=== PATIENT | female | born 1985 | race African-American/Black ===

== ENCOUNTER 2020-10-15 01:53 | Inpatient (IN) | payer BC, OTHER ==
[2020-10-15] MEDS ORDERED: DEXTROSE 5%-LACTATED RINGERS 1,000 ML IV SCH ×2 (02:00→07:00)
[2020-10-15] MEDS ORDERED: BUTORPHANOL TARTRATE 1 MG/ML VIAL IVPB ONE (02:00)
[2020-10-15] MEDS ORDERED: PROMETHAZINE HCL 25 MG/1 ML VIAL IVPB ONE (02:00)
[2020-10-15 03:34] LABS: BASO % 0.4 % (0-2.0); EOS % 2.3 % (0-4.5); HEMATOCRIT 34.6 % (32.4-45.2); HEMOGLOBIN 11.8 GM/dL (10.7-15.3); LYMPH % 29.5 % (8-40); MCH 28.7 pg (25.7-33.7); MEAN CELL VOLUME 84.2 fl (80-96); MEAN PLT VOLUME 8.2 fl (7.5-11.1); MONO % 7.7 % (3.8-10.2); NEUT % 60.1 % (42.8-82.8); PLATELET COUNT 283 10^3/uL (134-434); RBC 4.11 M/mm3 (3.60-5.2); RDW 13.9 % (11.6-15.6); WHITE BLOOD COUNT 8.1 K/mm3 (4.0-10.0)
[2020-10-15 03:41] LABS: INR 0.94 (0.83-1.09); PROTHROMBIN TIME (PATIENT) 11.4 SEC (9.7-13.0)
[2020-10-15 03:43] VITALS: BMI 42.1
[2020-10-15 03:43] LABS: ACTIVATED PTT 26.2 SECONDS (25.2-36.5)
[2020-10-15 03:57] LABS: CALCIUM 8.5 mg/dL (8.5-10.1)
[2020-10-15 03:59] LABS: BLOOD UREA NITROGEN 8.9 mg/dL (7-18)
[2020-10-15] MEDS ORDERED: PROMETHAZINE HCL 25 MG/1 ML VIAL ONE (04:00)
[2020-10-15] MEDS ORDERED: BUTORPHANOL TARTRATE 2 MG/ML VIAL ONE (04:00)
[2020-10-15 04:02] LABS: CREATININE 0.6 mg/dL (0.55-1.3)
[2020-10-15 04:56] LABS: HIV INTERPRETATION NEGATIVE (NEGATIVE)
[2020-10-15] MEDS ORDERED: LABETALOL HCL 100 MG TABLET (FP) ONE (05:32)
[2020-10-15] MEDS ORDERED: OXYTOCIN 20 UNITS in 0.9% NS 20 UNIT/1,000 ML INFUS.BAG IV ONE ×2 (07:03→09:16)
[2020-10-15] MEDS: OXYTOCIN 20 UNITS in 0.9% NS 20 UNITS/1,000 ML INFUS.BAG IV SCH ×2 (07:22→09:20)
[2020-10-15] MEDS ORDERED: BISACODYL 10 MG SUPP.RECT RC PRN (07:39)
[2020-10-15] MEDS ORDERED: oxyCODONE HCL 5 MG TABLET PO PRN (07:39)
[2020-10-15] MEDS ORDERED: BENZOCAINE 28 GM HEMORRHOIDAL OINTMENT TP PRN (07:39)
[2020-10-15] MEDS ORDERED: METHYLERGONOVINE MALEATE 0.2 MG/1 ML AMP IM PRN (07:39)
[2020-10-15] MEDS ORDERED: BENZOCAINE 20% 57 GM BOTTLE TP PRN (07:39)
[2020-10-15] MEDS ORDERED: WITCH HAZEL 50% (TUCKS) 40 PAD/JAR PAD TP PRN (07:39)
[2020-10-15] MEDS ORDERED: ACETAMINOPHEN 325 MG TABLET (FP) ONE (09:40)
[2020-10-15] MEDS ORDERED: IBUPROFEN 600 MG TABLET (FP) PO ONE (09:40)
[2020-10-15] MEDS: IBUPROFEN 600 MG TABLET (FP) PO PRN ×3 (09:45→22:16)
[2020-10-15] MEDS: ACETAMINOPHEN 325 MG TABLET (FP) PO PRN ×3 (09:45→22:16)
[2020-10-15] MEDS ORDERED: PRENATAL VITAMINS W/ FOLIC ACID TABLET (FP) PO ONE (10:08)
[2020-10-15] MEDS: PRENATAL VITAMINS W/ FOLIC ACID TABLET (FP) PO SCH (10:45)
[2020-10-16 08:10] LABS: BASO % 0.4 % (0-2.0); EOS % 1.5 % (0-4.5); HEMATOCRIT 31.9 % (32.4-45.2); HEMOGLOBIN 10.8 GM/dL (10.7-15.3); LYMPH % 21.3 % (8-40); MEAN CELL VOLUME 85.3 fl (80-96); MEAN PLT VOLUME 8.2 fl (7.5-11.1); MONO % 7.4 % (3.8-10.2); NEUT % 69.4 % (42.8-82.8); PLATELET COUNT 259 10^3/uL (134-434); RBC 3.74 M/mm3 (3.60-5.2); RDW 14.4 % (11.6-15.6); WHITE BLOOD COUNT 13.1 K/mm3 (4.0-10.0)
[2020-10-16] MEDS: PRENATAL VITAMINS W/ FOLIC ACID TABLET (FP) PO SCH (10:57)
[2020-10-16] MEDS ORDERED: SENNOSIDES/DOCUSATE COMBO (SENNA PLUS) TABLET (UD) PO PRN (22:00)
[2020-10-16] MEDS: IBUPROFEN 600 MG TABLET (FP) PO PRN (23:29)
[2020-10-16] MEDS: ACETAMINOPHEN 325 MG TABLET (FP) PO PRN (23:30)
[2020-10-17] MEDS: PRENATAL VITAMINS W/ FOLIC ACID TABLET (FP) PO SCH (09:32)
[2020-10-17 10:37] VITALS: BP 121/78; PULSE 81; TEMP 98.4
[2020-10-17] MEDS: IBUPROFEN 600 MG TABLET (FP) PO PRN (10:50)
[2020-10-17] MEDS: ACETAMINOPHEN 325 MG TABLET (FP) PO PRN (10:51)
== END 2020-10-17 13:15 | disposition home or self-care (01) | DRG 807 ==
LOC: JLDR 01:53 → J3W 11:00
PROVIDERS: ADMIT Obstetrics & Gynecology; ATTEND Obstetrics & Gynecology
PROC: 10E0XZZ Delivery of Products of Conception, External Approach (ICD-10-PCS; principal; 2020-10-15)
DX: O99.214 Obesity complicating childbirth (principal); Z37.0 Single live birth; Z3A.38 38 weeks gestation of pregnancy
CPT/HCPCS: 36415; 59409; 80048; 85025; 85610; 85730; 86780; 86850; 86900; 86901; 87389; C9803; U0003; U0005